=== PATIENT | female | born 1970 | race Caucasian/White ===

== ENCOUNTER 2021-01-06 10:26 | Emergency (ER) | payer OTHER ==
[2021-01-06 11:27] LABS: BASOPHIL 0.5 % (0-2); EOSINOPHIL 0.8 % (0-5); HCT 46.2 % (37.0-47.0); HGB 15.6 g/dl (12.5-16.0); LYMPHOCYTE 22.6 % (15-48); MCH 31.5 pg (25.0-31.0); MCHC 33.8 g/dL (32.0-36.0); MCV 93.1 fL (78.0-100.0); MONOCYTE 6.2 % (0-12); MPV 10.5 fL (6.0-9.5); NEUTROPHIL 69.1 % (41-80); NRBC 0; PLT 294 K/uL (150-400); RBC 4.96 M/uL (4.20-5.40); RDW 13.4 % (11.5-14.0)
[2021-01-06 11:33] LABS: BILIRUBIN NEGATIVE (NEGATIVE); BLOOD NEGATIVE Ery/uL (NEGATIVE); CLARITY CLEAR (CLEAR); COLOR YELLOW (YELLOW); GLUCOSE (U) NORMAL (NORMAL); LEUKOCYTES NEGATIVE Leu/uL (NEGATIVE); NITRITE NEGATIVE (NEGATIVE); PROTEIN NEGATIVE (NEGATIVE); UROBILINOGEN 0.2 mg/dL (0.2-1.0); pH 6.5 (5.0-9.0)
[2021-01-06 11:34] LABS: ECSTASY (MDMA) NEGATIVE (NEGATIVE)
[2021-01-06 11:35] LABS: AMPHETAMINES NEGATIVE (NEGATIVE); BARBITURATES NEGATIVE (NEGATIVE); MARIJUANA (THC) POSITIVE (NEGATIVE); METHADONE NEGATIVE (NEGATIVE); OPIATES NEGATIVE (NEGATIVE); OXYCODONE NEGATIVE (NEGATIVE)
[2021-01-06 11:48] LABS: ALBUMIN 3.6 g/dL (3.4-5.0); BILIRUBIN - TOTAL 0.2 mg/dL (0.2-1.0); BUN/CREAT RATIO (CALC) 21.3 RATIO; CREATININE 0.61 mg/dL (0.51-0.95); GLOBULIN (CALCULATION) 4.5 g/dL; POTASSIUM 3.7 mmol/L (3.5-5.1); TOTAL PROTEIN 8.1 g/dL (6.4-8.2)
[2021-01-06] MEDS ORDERED: METRONIDAZOLE500 MG PO (13:45)
[2021-01-06] MEDS ORDERED: CIPRO500 MG PO (13:45)
[2021-01-06] MEDS ORDERED: NORCO 5-325 TA1 EACH PO (13:45)
[2021-01-06] MEDS ORDERED: PROMETHAZINE 2525 MG PO (13:46)
[2021-01-06] MEDS ORDERED: DIFLUCAN150 MG PO (14:06)
== END 2021-01-06 14:40 | disposition home or self-care (01) ==
LOC: FER 10:26
PROVIDERS: Internal Medicine
DX: K57.32 Diverticulitis of large intestine without perforation or abscess without bleeding (principal); F17.210 Nicotine dependence, cigarettes, uncomplicated; Z90.49 Acquired absence of other specified parts of digestive tract
CPT/HCPCS: 36415; 80053; 80305; 81003; 83690; 84484; 85025; 93005; J0696; J1170; J2405; J7120; Q9967

== ENCOUNTER → 2021-03-02 | Day surgery (SDC) | payer OTHER ==
[~2021-03-02] VITALS: Ht 160 cm; Wt 64.0 kg
[~2021-03-02] MED LIST: CIPRO500 MG PO; DIFLUCAN150 MG PO; METRONIDAZOLE500 MG PO; NORCO 5-325 TA1 EACH PO; PRILOSEC20 MG PO; PROMETHAZINE 2525 MG PO
== END | disposition home or self-care (01) ==
LOC: FAS 09:27
DX: K62.5 Hemorrhage of anus and rectum (principal); D12.8 Benign neoplasm of rectum; D12.2 Benign neoplasm of ascending colon; D12.0 Benign neoplasm of cecum; K57.30 Diverticulosis of large intestine without perforation or abscess without bleeding; K64.8 Other hemorrhoids; M54.9 Dorsalgia, unspecified; R19.7 Diarrhea, unspecified; R14.0 Abdominal distension (gaseous); F17.200 Nicotine dependence, unspecified, uncomplicated; K21.9 Gastro-esophageal reflux disease without esophagitis; F19.90 Other psychoactive substance use, unspecified, uncomplicated; Z80.0 Family history of malignant neoplasm of digestive organs; Z72.89 Other problems related to lifestyle
CPT/HCPCS: J2704; J7120